=== PATIENT | female | born 1955 | race Two or more races ===

== ENCOUNTER 2020-01-04 10:39 | Emergency (ER) | payer BC ==
[~2020-01-04] VITALS: Ht 144.8 cm; Wt 61.2 kg
[2020-01-04] MEDS ORDERED: LEVAQUIN750 MG PO (14:47)
[2020-01-04] MEDS ORDERED: TESSALON PERLE100 M1 PO (14:47)
[2020-01-04] MEDS ORDERED: MEDROLPACK PO (14:47)
[2020-01-04] MEDS ORDERED: TUSSI PRES-B L480 ML PO (14:47)
== END 2020-01-04 14:51 | disposition home or self-care (01) ==
LOC: ER 10:39
DX: J06.9 Acute upper respiratory infection, unspecified (principal)